=== PATIENT | female | born 1945 | race Caucasian/White ===

== ENCOUNTER 2016-09-30 05:34 | Day surgery (SDC) | payer MEDICARE ==
--- NOTE | 2016-09-29 09:19 | HP ---
DATE OF CLINIC: 09/22/2016 TARYN MOSES : 1945 PLANNED PROCEDURE: Right Knee Arthroscopic Partial Medial Meniscectomy DATE OF SURGERY: September 30, 2016 SURGEON: Demian Martin M.D. HISTORY OF PRESENT ILLNESS Taryn Moses is a 70 year old female. * Medication list reviewed with patient allergy list reviewed with patient. 70-year-old female patient seen today for progressively increasing right medial knee pain. Patient states she has had 2 episodes with her knee over the last 4 months, the first being in the fall while hunting. She was coming down an embankment, she kind of tweaked her knee and had pain and swelling at the time. She was able to continue and seemed to get a little bit better until a couple of months ago. She was walking her dog in a [employer] [place], again coming down a little bit of a slope. She twisted and torqued her knee. She had the onset of pain and swelling. Now she states she is unable to walk without a cane, which is very unusual for her. She has a significant amount of swelling and pain in the medial aspect of her knee. She also complains of catching and feelings of distrust and/or instability. Patient denies prior history with regard to her knee. She is having no hip pain, back pain or radiating pain. She has been taking non-steroidal anti-inflammatories, Diclofenac, and sodium without significant relief of her symptoms. After discussion and review of treatment options, both operative and non-operative, she has elected to proceed with surgery and presents today preoperatively. CURRENT MEDICATION * All Day Allergy 10 MG Tablet 1 once a day 0 days, 0 refills * Crestor 10 MG Tablet as directed 1/2 tab qd, 0 days, 0 refills * Estradiol 1 MG Tablet 1 once a day 0 days, 0 refills * Hydrocodone-Acetaminophen 5-325 MG Tablet as needed 0 days, 0 refills * Protonix 40 MG Tablet Delayed Release as needed 0 days, 0 refills * Synthroid 50 MCG Tablet 1 once a day 0 days, 0 refills * Triamterene-HCTZ 75-50 MG Tablet 1 once a day 0 days, 0 refills PAST MEDICAL/SURGICAL HISTORY Reported: Medical: Cholesterol problems. Arthritis hand back and feet. Surgical / Procedural: Surgical / procedural history Breast biopsy 1997,1998 lumbar del toro 1985 tubal 1972, 1974 D&C 1999 sinus sx 2002 flex sig and prior surgery Right shoulder scope, RCR, SAD performed by Dr.Brian Barry at the [facility] on 08/09/12. Diagnoses: Fracture Rt 5th toe Surgical: * Hysterectomy 2002 SOCIAL HISTORY Behavioral: Chewing tobacco and non-smoker never smoked. Smoking status: Never smoker. Alcohol: Alcohol use a social drinker. Work: Occupation Retired RN. ALLERGIES * adhesive tape Reaction: blisters * Ampicillin Reaction: Skin Rashes/Hives * Betadine Reaction: blisters skin * Penicillins Reaction: Skin Rashes/Hives * Seafood FAMILY HISTORY 3 children living Cancer mother,father Heart disease mother Kidney disease father Osteoarthritis father Thyroid disease mother REVIEW OF SYSTEMS No recent constitutional symptoms to include fevers and chills. No cardiovascular symptoms to include chest pain or palpitations. No respiratory symptoms to include shortness of breath or recent infections. PHYSICAL FINDINGS * Vitals taken 09/22/2016 10:02 am BP-Sitting R 136/67 mmHg BP Cuff Size Regular Pulse Rate-Sitting 80 bpm Temp-Oral 97.6 F Height 67.5 in Weight 220 lbs Body Mass Index 33.9 kg/m2 Body Surface Area 2.12 m2 Pain Level 3 Ears, Nose, Throat: * ENT: normal. Lungs: * Clear to auscultation. Cardiovascular: Heart Rate and Rhythm: * Normal. Abdomen: * Normal. Neurological: Motor: * Dominant Hand = Right Hand. This is a pleasant female in no acute distress. Exam of her right knee reveals moderate effusion. She is tender over the medial joint-line, NT over the lateral joint-line, she has a little bit of patellofemoral lateral facet tenderness, but nothing like her medial knee. She walks with an antalgic, flexed knee gait. ROM is reduced. She can get just shy of full extension, maybe just 2-3 degrees. She only flexes to about 95 degrees and then has pain and pressure sensation. Ligaments are stable to valgus, varus, anterior and posterior stress. She has positive Raad's. Hip ROM is without hip pain. Calf is soft and NT. Muscle strength reduced secondary to pain complaints. 4+/5 knee extension. Otherwise the rest of the muscle exam is 5/5. TESTS * Test: CBC NO DIFF Report Date: 09/22/2016 WBC 7.6 10*3/mL RBC 5.40 10*6/uL MCH 28.7 pg MCHC 33.8 g/dL RDW 13.4 % MCV 84.8 fL PLATELET COUNT 286 10*3/mL HCT 45.8 % HGB 15.5 g/L * Test: COMPREHENSIVE METABOLIC PANEL Report Date: 09/22/2016 ALT/SGPT 14 U/L ALBUMIN 4.2 g/dL ALB/GLOB RATIO 1.6 BUN 17 mg/dL BUN/CREAT RATIO 19 CALCIUM 9.6 mg/dL GLUCOSE 99 mg/dL CREATININE 0.9 mg/dL SODIUM 138 meq/L POTASSIUM 3.2 meq/L Low CHLORIDE 98 meq/L CARBON DIOXIDE 31 meq/L ANION GAP 12 meq/L TOT PROTEIN 6.8 g/dL GLOBULIN 2.6 g/dL BILI,TOTAL 0.4 mg/dL AST/SGOT 15 U/L ALK PHOSPHATASE 46 U/L GFR 62 X-rays of her knee show no acute findings. She has subtle medial compartment narrowing and patellofemoral degenerative characteristics, particularly in the lateral patellar facet. MRI of her knee; please see radiologist interpretation. It shows articular cartilage changes in the patellofemoral joint and there does appear to be a posterior horn medial meniscus tear or large effusion. ASSESSMENT Acute right knee medial meniscus tear. Osteoarthritis patellofemoral joint, right knee. THERAPY * Patient fall risk screen positive. * Patient eligible for fall risk assessment. * Patient received fall risk assessment. PLAN * Oth meniscus derang, post horn of medial meniscus, r knee Percocet 5-325 MG TABS, 1 every 4 - 6 hours as needed, 14 days, 0 refills * Knee Arthroscopy (Right) with PMM CARE TEAM María Elena Engle MD [facility] SURGICAL CONSENT We have discussed surgical options including right knee arthroscopic PMM and non-operative management. The patient was counseled in detail regarding the diagnosis, treatment options available, prognosis of each treatment option and the potential risks and complications. The risks of surgery include, but are not limited to, anesthetic , neurovascular complications, pulmonary embolism, deep vein thrombosis, wound dehiscence, failure of any or all of the discussed procedures, infection of the joint or surrounding soft tissue, need for revision surgery, chronic pain, limitations in activities of daily living, inability to return to work, and loss of normal range of motion or functional use of the extremity. There is the possibility of failure over time that may require additional operative or non-operative treatment. The patient acknowledged that there are a number of perioperative risks not mentioned here and would still like to proceed. The patient is aware of and understands these risks, and wishes to proceed with the proposed surgical procedure and other procedures as indicated at the time of surgery. We will have the patient see their PCP for a preoperative medical risk assessment. The preoperative instructions were reviewed with the patient and all questions were answered. PB/sg
[2016-09-30] MEDS ORDERED: IV START KIT ONE (05:38)
[2016-09-30] MEDS ORDERED: LACTATED RINGERS 1,000 ML ONE (05:38)
[2016-09-30] MEDS ORDERED: CLINDAMYCIN 900 MG PREMIX 100 ML IV PRN (05:45)
[2016-09-30] MEDS ORDERED: CLINDAMYCIN 600 MG PREMIX 50 ML IV PRN (05:45)
[2016-09-30] MEDS ORDERED: PROPOFOL 20 ML IV ONE (06:22)
[2016-09-30] MEDS ORDERED: LIDOCAINE 2% (PRES FREE) 5 ML VIAL ONE (06:22)
[2016-09-30] MEDS ORDERED: FENTANYL 100 MCG/2 ML VIAL ONE ×2 (06:25→08:43)
[2016-09-30] MEDS ORDERED: MIDAZOLAM HCL 1 MG/ML 2ML VIAL ONE (06:25)
[2016-09-30] MEDS ORDERED: PHENYLEPHRINE 10 MG/1 ML (1%) VIAL ONE (06:27)
[2016-09-30] MEDS ORDERED: SODIUM CHLORIDE 0.9% 100 ML IV ONE (06:27)
[2016-09-30] MEDS ORDERED: SCOPOLAMINE 1.5 MG/72 HR 1 EACH PATCH TD ONE (06:50)
[2016-09-30] MEDS ORDERED: SUCCINYLCHOLINE CHL 20 MG/ML DOSE ONE (06:56)
[2016-09-30] MEDS ORDERED: CLINDAMYCIN 900 MG PREMIX 50 ML IV ONE (06:59)
[2016-09-30] MEDS ORDERED: BUPIVACAINE 0.5% W/EPI SDV 30 ML VIAL ONE (07:01)
[2016-09-30] MEDS ORDERED: PROPOFOL 40 ML IV ONE (07:33)
[2016-09-30] MEDS ORDERED: DEXAMETHASONE SOD PHOS 4 MG/1 ML VIAL ONE (07:36)
[2016-09-30] MEDS ORDERED: ONDANSETRON 4 MG/2ML 2 ML VIAL ONE (07:36)
[2016-09-30] MEDS ORDERED: ATROPINE SULFATE 0.4 MG/1 ML VIAL IV PRN (07:42)
[2016-09-30] MEDS ORDERED: LABETALOL HCL 5 MG/ML 20ML VIAL IV PRN (07:42)
[2016-09-30] MEDS ORDERED: MEPERIDINE 25 MG/ML SYRINGE IV PRN (07:42)
[2016-09-30] MEDS ORDERED: NALOXONE HCL 0.4 MG/ML VIAL IV PRN (07:42)
[2016-09-30] MEDS ORDERED: PROMETHAZINE HCL 25 MG/ML VIAL IM PRN (07:42)
[2016-09-30] MEDS ORDERED: HYDRALAZINE HCL 20 MG/1 ML VIAL IV PRN (07:42)
[2016-09-30] MEDS ORDERED: ONDANSETRON 4 MG/2ML 2 ML VIAL IV PRN ×2 (07:42→09:11)
[2016-09-30] MEDS ORDERED: LACTATED RINGERS 1,000 ML IV SCH ×2 (07:45→09:11)
[2016-09-30] MEDS ORDERED: HYDROMORPHONE HCL 2 MG/ML SYRINGE ONE (07:54)
--- NOTE | 2016-09-30 08:24 | PCMBPN ---
Brief Post Op Note: Date of Procedure: 09/30/16 Start Time: 07 Preoperative Diagnosis: 1. Right Knee Medial Meniscus Tear Postoperative Diagnosis: 1. Right Knee Posterior Medial Meniscus Tear Procedure: Right Knee Arthroscopy and Posterior PMM Surgeon: Demian Martin MD Assist:JEFF Matthews Anesthesia: Jack Robles CRNA Findings: See above Condition: Stable Complications: None IV Fluids: 1200 mLs of LR Urine Output: 0 mLs Estimated Blood Loss: 5 mLs Tourniquet Time: 15min at 250mmHg Specimens: N/A Implants: None Drains: [N/A]
[2016-09-30] MEDS: FENTANYL 100 MCG/2 ML VIAL IV PRN ×4 (08:31→08:56)
[2016-09-30] MEDS ORDERED: MEPERIDINE 25 MG/ML SYRINGE ONE (08:43)
[2016-09-30] MEDS ORDERED: HYDROMORPHONE HCL 1 MG/ML SYRINGE ONE (08:57)
[2016-09-30] MEDS: HYDROMORPHONE HCL 1 MG/ML SYRINGE IV PRN ×2 (09:02→09:08)
[2016-09-30] MEDS ORDERED: OXYCODONE HCL 5 MG TABLET PO PRN (09:11)
[2016-09-30] MEDS ORDERED: HYDROMORPHONE HCL 1 MG/ML SYRINGE IV PRN (09:11)
[2016-09-30] MEDS ORDERED: ACETAMINOPHEN 325 MG TABLET PO PRN (09:11)
[2016-09-30] MEDS ORDERED: DIPHENHYDRAMINE HCL 50 MG/1 ML VIAL IV PRN (09:11)
[2016-09-30] MEDS ORDERED: KETOROLAC TROMETHAMINE 30 MG/ML 1 ML VIAL ONE (09:42)
[2016-09-30] MEDS ORDERED: KETOROLAC TROMETHAMINE 30 MG/ML 1 ML VIAL IV ONE (09:44)
[2016-09-30] MEDS ORDERED: OXYCODONE HCL 5 MG TABLET ONE (10:25)
[2016-09-30] MEDS ORDERED: ALBUTEROL/IPRATROPIUM 2.5/0.5 MG 3 ML/EACH DOSE ONE (10:41)
[2016-09-30] MEDS ORDERED: ALBUTEROL/IPRATROPIUM 2.5/0.5 MG 3 ML/EACH DOSE NEB ONE (10:45)
--- NOTE | 2016-10-06 09:36 | OP ---
Taryn MOSES : 1945 [id number] DATE OF PROCEDURE: September 30, 2016 PREOPERATIVE DIAGNOSIS: Right knee medial meniscus tear. POSTOPERATIVE DIAGNOSIS: Right knee medial meniscus tear. PROCEDURE PERFORMED: RIGHT KNEE ARTHROSCOPY WITH PARTIAL MEDIAL MENISCECTOMY. SURGEON: Demian Martin M.D. LATH TIER: Eulogio Torres P.A.-C. ANESTHESIA: Verónica Hay.N.Valeriy SPECIMENS: No material was sent to the laboratory. ESTIMATED BLOOD LOSS: 5 mL FLUIDS REPLACED: 1200 mL of crystalloid. TOURNIQUET TIME: 15 minutes at 250 mmHg. URINE OUTPUT: None. IMPLANTS: None. DRAINS: No drains. INDICATIONS: This is a 70-year-old female who complains of pain and mechanical symptoms in the right knee that have been increasing over time and have not responded to a course of nonoperative measures. Patient has an exam and imaging studies which are consistent with the above. Given failure to improve with nonoperative measures patient was consented for right knee arthroscopy with partial medial meniscectomy. The risks, benefits and alternatives were discussed at length with that patient and they elected to proceed with surgery. Informed consent was obtained and documented in the chart and the patient was placed on the schedule the first available convenience. DESCRIPTION OF PROCEDURE: The patient was identified in the preoperative holding area where they were marked with an indelible marker by the operating surgeon. Patient was taken to the operating room where they were placed in the supine position the operating room table. A general anesthesia was induced, perioperative antibiotics were administered and a well padded pre-calibrated nonsterile tourniquet was placed on the right upper thigh. Patient was prepped and draped in the usual sterile fashion for surgery. An operative time out was performed and confirmed by all members of the operative team confirming the patient identity, procedure to be performed and the laterally for that procedure. All necessary personnel, equipment and implants were in place and there were no safety concerns. The leg was elevated and exsanguinated using the Esmarch bandage and the tourniquet was inflated to 250 mmHg. A standard lateral portal was created and the 30 degree viewing arthroscope was inserted into the knee. Optics were directed anteromedially and a medial portal was localized and created in a standard fashion. A probe was inserted through this medial portal and used in completion of the diagnostic arthroscopy with the following findings: The patient had significant degenerative arthrosis throughout the knee with grade 2 and 3 chondral changes in all compartments. Her medial meniscus showed significant tearing over the junction of the posterior horn and the midbody. Her lateral meniscus showed fraying of the posterior horn but no ankit tear. ACL and PCL were intact. Grade 2 and 3 changes in the patellofemoral joint. After completion of diagnostic arthroscopy the probe was exchanged for an arthroscopic biter and this was used to resect back the medial meniscus to a stable rim. This was then exchanged for arthroscopic resector shaver which was used to complete the partial atrial meniscectomy and perform some shaving chondroplasty and all three compartments to remove loose pieces of cartilage. At this point we felt that we had addressed the patient's intra-articular pathology and so the camera and instruments were removed from the knee. The portal sites were closed with #4-0 Nylons; 20 mL of 0.5% Marcaine was injected into the knee for perioperative analgesia. A sterile dressing of Xeroform, fluffs, ABDs, web roll and then an STEPHEN bandage from ankle to the thigh was applied. The tourniquet was deflated, the drapes were removed. The patient was awakened from anesthesia and extubated in the operating room without difficulty. Patient was transferred to a stretcher and taken postoperatively to the post anesthesia care unit in stable condition. There were no observed intraoperative complications during this procedure. Job [id number] Cc: [facility]
== END 2016-09-30 12:55 | disposition home or self-care (01) ==
LOC: SDC 05:34
PROVIDERS: ATTEND Orthopaedic Surgery
PROC: 0SBC4ZZ Excision of Right Knee Joint, Percutaneous Endoscopic Approach (ICD-10-PCS; principal; 2016-09-30)
DX: M23.321 Other meniscus derangements, posterior horn of medial meniscus, right knee (principal); M17.9 Osteoarthritis of knee, unspecified; Z88.1 Allergy status to other antibiotic agents; Z88.0 Allergy status to penicillin; Z91.040 Latex allergy status; Z91.048 Other nonmedicinal substance allergy status
CPT/HCPCS: 94010; 29881; J2175; J1170 ×2; J3010 ×3; J1100; J2370; A9270 ×2; J1885; J2250; J2405; J7120 ×2; J7050